=== PATIENT | male | born 1955 | race Two or more races ===

== ENCOUNTER 2023-10-13 02:21 | Emergency (ER) | payer OTHER ==
[~2023-10-13] VITALS: Ht 177.8 cm; Wt 100.0 kg
[2023-10-13 02:30] VITALS: PULSE 78; RESP 16; O2SAT 96
[2023-10-13] MEDS ORDERED: FUROSEMIDE 40 MG/4 ML VIAL IV ONE (03:00)
[2023-10-13] MEDS ORDERED: ENALAPRILAT 1.25 MG/ML-1ML VIAL IV ONE (03:00)
[2023-10-13] MEDS ORDERED: ONDANSETRON HCL 4 MG/2 ML VIAL IV ONE (03:00)
[2023-10-13] MEDS ORDERED: VANCOMYCIN PER PHARMACY 0 MG IV SCH (03:00)
[2023-10-13] MEDS ORDERED: NITROGLYCERIN 0.4MG/HR TOPICAL PATCH TD ONE (03:00)
[2023-10-13] MEDS ORDERED: methylPREDNISolone SOD SUCC 125 MG/2 ML VL IV ONE (03:00)
[2023-10-13] MEDS ORDERED: VANCOMYCIN 1GM/250ML 250 ML IV ONE (04:00)
[2023-10-13 04:28] LABS: Basophils # (auto) 0 10 ^3/uL (0-0.2); Basophils % (auto) 0.3 % (0.0-2.0); Eosinophils # (auto) 0.1 10 ^3/uL (0-0.8); Lymphocytes # (auto) 0.4 10 ^3/uL (0.4-5.4); Monocytes # (auto) 0.3 10 ^3/uL (0-1.3); Nucleated Red Blood Cells % 0.1 %
[2023-10-13 04:30] LABS: Eosinophils % (auto) 1.2 % (0.0-7.0); Hemoglobin 9.5 g/dL (13.5-17.5); Lymphocytes % (auto) 6.5 % (10.0-50.0); Mean Corpuscular Hemoglobin 32.2 pg (28.0-32.0); Mean Corpuscular Hgb Conc. 31.8 g/dL (32.0-36.0); Mean Corpuscular Volume 101.4 fL (80.0-100.0); Monocytes % (auto) 5.7 % (0.0-12.0); Neutrophils # (auto) 4.9 10 ^3/uL (1.6-8.6); Neutrophils % (auto) 86.3 % (37.0-80.0); Red Blood Cells 2.96 10^6/uL (4.5-5.90); Red Cell Distribution Width 15.5 % (11.8-14.3); White Blood Cell 5.7 10^3/uL (4.4-10.8)
[2023-10-13 04:41] LABS: Alanine Aminotransferase 13 U/L (7-40); Albumin 4.1 g/dL (3.2-4.8); Alkaline Phosphatase 45 U/L (46-116); Anion Gap 9 (5-15); Aspartate Aminotransferase 17 U/L (13-40); Bilirubin, Total 0.3 mg/dL (0.2-1.0); Blood Urea Nitrogen 60 mg/dL (9-23); Calcium 8.1 mg/dL (8.7-10.4); Carbon Dioxide 20 mmol/L (20-30); Chloride 112 mmol/L (98-107); Glucose 68 mg/dL (74-106); Magnesium 2.4 mg/dL (1.6-2.6); Potassium 5.3 mmol/L (3.5-5.1); Sodium 141 mmol/L (136-145); Total Protein 6.4 g/dL (5.7-8.2)
[2023-10-13] MEDS ORDERED: InsuLIN REG 1unit/0.01ml Soln (100units/ml) IV ONE (05:00)
[2023-10-13] MEDS ORDERED: PIPERACILLIN-TAZOB 3.375GM 100 ML IV SCH (06:00)
[2023-10-13 06:58] VITALS: O2SAT 93
[2023-10-13 07:41] VITALS: PULSE 83; RESP 27; O2SAT 100
[2023-10-13] MEDS ORDERED: AZITHROMYCIN 500MG/ 250ML 250 ML IV ONE (07:45)
[2023-10-13] MEDS ORDERED: SODIUM CHLORIDE 0.9% 250 ML IV ONE (07:45)
[2023-10-13] MEDS ORDERED: AZIT500T PO (08:03)
[2023-10-13 08:34] LABS: INR 1.13 (0.9-1.15); Partial Thromboplastin Time 34.7 SEC (24.5-34.5); Prothrombin Time 11.8 sec (9.3-11.8)
[2023-10-13 08:56] LABS: COVID19 ANTIGEN SOFIA FIA NEGATIVE (NEGATIVE); Urine Bacteria FEW /hpf (None Seen); Urine Blood 2+ /uL (Negative); Urine Clarity Clear (Clear); Urine Color Colorless (Yellow); Urine Protein, UAD 3+ (Negative); Urine Specific Gravity 1.011 (1.001-1.035); Urine Urobilinogen Normal (Negative); Urine WBC 1 /hpf (0 - 3)
[2023-10-13] MEDS ORDERED: hydrALAZINE HCL 20 MG/ML VL IV ONE (09:00)
[2023-10-13] MEDS ORDERED: ALBU0.084 NEB (09:26)
[2023-10-13 12:36] VITALS: BP 144/64; PULSE 81; RESP 20; O2SAT 100
== END 2023-10-13 12:47 | disposition home or self-care (01) ==
LOC: ER 02:21 → EDBD 02:21 → ER 12:47
DX: J96.01 Acute respiratory failure with hypoxia (principal); I11.0 Hypertensive heart disease with heart failure; I50.9 Heart failure, unspecified; J45.909 Unspecified asthma, uncomplicated; R07.89 Other chest pain; Z20.822 Contact with and (suspected) exposure to COVID-19
CPT/HCPCS: 36415; 36600; 71045; 80053; 81001; 82805; 83605; 83735; 83880; 84484; 85025; 85379; 85610; 85730; 86850; 86900; 86901; 87040; 87426; 93005; 94660; 96365; 96366; 96367; 96375; 99291; J0360; J0456; J1940; J2543; J2930; J3370